=== PATIENT | female | born 1945 | race Caucasian/White ===

== ENCOUNTER 2016-11-19 08:48 | Day surgery (SDC) | payer MEDICARE, OTHER ==
[~2016-11-19] VITALS: Ht 147.3 cm; Wt 67.1 kg
[~2016-11-19 08:48] MED LIST: ADVAIR DISK2 IN; AMLODIPINE5 MG PO; ASPIRIN EC LOW81 MG OR; ATIVAN1 MG PO; ATORVASTATIN CA40 MG OR; ATROVENT NASAL0.03 % NAS; CALCIUM + D600 MG OR; CHANTIX1 MG PO; COMBIVENT INH; DUONEB IN; FLUTICASONE50 MCG; LEVAQUIN500 MG PO; MEDDOSEPAK PO; MULTI FOR HER PO; MYRBETRIQ25 MG PO; PHENERGAN25 MG/TAB PO; PREDNISONE10 MG PO; PREMARIN VAGINAL CRE VA; PROLIA60 MG/ML SC; TRAMADOL HCL50 MG PO; VENTOLIN HFA IN; XYZAL5 MG PO
[2016-11-19 11:03] VITALS: BP 132/59
== END 2016-11-19 11:10 | disposition home or self-care (01) ==
LOC: ENDO 08:48 → ORM 12:45 → ENDO 13:25
PROVIDERS: ATTEND Internal Medicine Gastroenterology
PROC: 0DBP8ZX Excision of Rectum, Via Natural or Artificial Opening Endoscopic, Diagnostic (ICD-10-PCS; principal; 2016-11-19)
PROC: 0DBN8ZX Excision of Sigmoid Colon, Via Natural or Artificial Opening Endoscopic, Diagnostic (ICD-10-PCS; 2016-11-19)
DX: Z12.11 Encounter for screening for malignant neoplasm of colon (principal); I10 Essential (primary) hypertension; E78.00 Pure hypercholesterolemia, unspecified; J44.9 Chronic obstructive pulmonary disease, unspecified; K64.4 Residual hemorrhoidal skin tags; K57.30 Diverticulosis of large intestine without perforation or abscess without bleeding; D12.5 Benign neoplasm of sigmoid colon; K62.1 Rectal polyp; K64.8 Other hemorrhoids; Z86.010 Personal history of colon polyps

== ENCOUNTER → 2018-03-15 | Outpatient (REF) | payer MEDICARE, OTHER | END | disposition home or self-care (01) | LOC: MAMMO 09:34 | PROVIDERS: ATTEND Internal Medicine | DX: Z12.31 Encounter for screening mammogram for malignant neoplasm of breast (principal) ==

== ENCOUNTER → 2018-03-20 | Outpatient (REF) | payer MEDICARE, OTHER ==
[2018-03-20 09:43] LABS: HEMATOCRIT 40.2 % (37.0-47.0); HEMOGLOBIN 11.8 g/dl (12.0-16.0); MEAN CELL VOLUME 80.9 fL CALC (80.0-100.0); MEAN CORPUSCULAR HGB 23.7 pG CALC (26.0-32.0); MEAN CORPUSCULAR HGB CONC 29.4 g/L CALC (32.0-36.0); RED BLOOD COUNT 4.97 mill/uL (4.20-5.60); RED CELL DISTRI WIDTH 25.3 % (11.5-15.5)
== END | disposition home or self-care (01) ==
LOC: LAB 09:22
PROVIDERS: ATTEND Nurse Practitioner
DX: D64.9 Anemia, unspecified (principal)